=== PATIENT | male | born 1940 | race Caucasian/White ===

== ENCOUNTER 2019-11-15 19:34 | Emergency (ER) | payer MEDICARE, OTHER ==
[2019-11-15] MEDS ORDERED: Lidocaine 1% w/Epinephrine 1:100K 20 ML VIAL ONE (19:40)
[2019-11-15] MEDS ORDERED: Adacel (T-DAP) 0.5 ML SYRINGE ONE (19:45)
== END 2019-11-15 20:33 | disposition home or self-care (01) ==
LOC: MADERS 19:34
DX: S51.812A Laceration without foreign body of left forearm, initial encounter (principal); E78.5 Hyperlipidemia, unspecified; E78.00 Pure hypercholesterolemia, unspecified; Z87.891 Personal history of nicotine dependence; W26.9XXA Contact with unspecified sharp object(s), initial encounter
CPT/HCPCS: 12032; 90471; 90715